=== PATIENT | male | born 1950 | race Caucasian/White ===

== ENCOUNTER 2017-09-19 16:18 | Emergency (ER) | payer OTHER ==
[2017-09-19] MEDS ORDERED: ONDANSETRON 4 MG/2 ML VIAL ONE ×2 (17:40→19:19)
[2017-09-19] MEDS ORDERED: MECLIZINE HCL 12.5 MG TAB ONE (17:40)
[2017-09-19] MEDS ORDERED: FAMOTIDINE 20 MG/2 ML VIAL IV ONE (17:40)
[2017-09-19] MEDS ORDERED: NA CHLORIDE 0.9% 500 ML ONE ×2 (17:50→19:27)
[2017-09-19 17:53] LABS: Absolute Lymphocytes (CBC) 1.5 K/uL (0.7-4.9); Absolute Monocytes 0.6 K/uL (0.1-1.3); Absolute Neutrophil 8.6 K/uL (1.8-8.0); Basophils % 0.7 % (0-1.3); Eosinophils % 0.5 % (0-4.4); Hematocrit 46.8 % (39.6-49.0); Lymphocytes % 14.1 % (15.3-44.8); MCH 30.2 pg (27.0-35.0); MCV 90.7 fL (80-100); MPV 8.8 fL (7.6-11.3); Monocytes % 5.5 % (3.3-12.3); RBC Red Blood Cell Count 5.16 M/uL (4.33-5.43)
--- NOTE | 2017-09-19 17:59 | RAD REPORT ---
EXAM DESCRIPTION: CT - Head Brain Wo Cont - 09/19/2017 5:52 pm CLINICAL HISTORY: Headache, dizziness, vertigo COMPARISON: None. TECHNIQUE: Axial 5 mm thick images of the head were obtained without IV contrast. All CT scans are performed using dose optimization technique as appropriate and may include automated exposure control or mA/KV adjustment according to patient size. FINDINGS: No intracranial hemorrhage, mass, edema or shift of mid-line structures. No acute infarcti on changes seen. No abnormal extra-axial fluid collections. Ventricles are normal. Mastoid air cells and visualized portions of the paranasal sinuses are clear. No acute bony findings. IMPRESSION: Negative non-contrast CT head examination.
[2017-09-19 18:06] LABS: Protime INR 1.03
[2017-09-19 18:20] LABS: Albumin 3.8 g/dL (3.4-5.0); Bilirubin Direct 0.1 mg/dL (0-0.2); Bilirubin Total 0.7 mg/dL (0.2-1.0); CKMB Creatine Kinase MB 1.4 ng/mL (0.3-3.6); Magnesium 2.4 mg/dL (1.8-2.4); Potassium 4.5 mmol/L (3.5-5.1); Protein, Total 7.4 g/dL (6.4-8.2)
--- NOTE | 2017-09-19 18:47 | EKG ---
Test Date: 2017-09-19 Test Time: 17:02:01 Alteration Hand: DAVID MEASUREMENT RESULTS: Intervals: Rate: 58 OK: 176 QRSD: 82 QT: 450 QTc: 441 [place]: P: 2 OK: 176 QRS: 5 T: 26 INTERPRETIVE STATEMENTS: Sinus bradycardia Otherwise normal ECG Compared to ECG 01/22/2010 14:48:52 No significant changes Electronically Signed On 09-19-17 18:47:03 CDT by Gurpreet Brower
--- NOTE | 2017-09-19 18:53 | RAD REPORT ---
EXAM DESCRIPTION: RAD - Chest Single View - 09/19/2017 5:59 pm CLINICAL HISTORY: Dizziness, weakness, shortness of breath COMPARISON: January 2020 TECHNIQUE: AP portable chest image was obtained 1746 hours . FINDINGS: Lung volumes are low. Linear stranding left base similar to comparison. This is scarring o r chronic atelectasis. Acute infiltrate is not suspected. No failure or volume overload. Heart and va sculature are normal. No measurable pleural effusion and no pneumothorax. No gross bony abnormality s een. No acute aortic findings suspected. IMPRESSION: Shallow inspiration film without acute cardiopulmonary finding. No significant change from comparison.
[2017-09-19] MEDS ORDERED: NA CHLORIDE 0.9% 1,000 ML ONE (19:27)
[2017-09-19] MEDS ORDERED: PROMETHAZINE 25 MG/ML VIAL ONE (20:17)
--- NOTE | 2017-09-19 20:32 | EDPHYS ---
Physician Documentation [facility] Name: Donald Dixon Age: 67 yrs Sex: Male : 1950 Arrival Date: 09/19/2017 Time: 16:22 Bed 30 Private MD: Adam Braswell ED Physician Antione Alves HPI: 09/19 17:15 This 67 yrs old Male presents to ER via Ambulatory with complaints of Vertigo.cp 17:15 The patient presents with dizziness, lightheadedness, feeling off balance. cp 17:15 Onset: The symptoms/episode began/occurred this morning. Context: occurred at home, cp occurred while the patient was getting up from bed, just prior to the episode the patient experienced no apparent symptoms. Associated signs and symptoms: Pertinent positives: headache, nausea, vomiting. Severity of symptoms: in the emergency department the symptoms are unchanged. Patient's baseline: Neuro: alert and fully oriented, Motor: no deficits, Ambulation: walks without assistance, Speech: normal. Historical: - Allergies: 16:54 No Known Allergies; jl7 - PMHx: 16:54 Hypertension; GERD; jl7 - PSHx: 16:54 Appendectomy; Knee surgery; Tonsillectomy; jl7 - Immunization history:: Adult Immunizations up to date. - Social history:: Smoking status: Patient/guardian denies using tobacco, Patient uses alcohol, but reports only rare drinking. - Ebola Screening: : No symptoms or risks identified at this time. ROS: 17:20 Constitutional: Negative for body aches, chills, fever. cp 17:20 Eyes: Negative for injury, pain, redness, and discharge. cp 17:20 ENT: Negative for drainage from ear(s), ear pain, sore throat, difficulty swallowing, difficulty handling secretions. 17:20 Cardiovascular: Negative for chest pain, edema, palpitations. 17:20 Respiratory: Negative for cough, shortness of breath, wheezing. 17:20 Abdomen/GI: Positive for nausea and vomiting, Negative for abdominal pain, diarrhea, constipation, black/tarry stool, rectal bleeding. 17:20 Skin: Negative for cellulitis, rash. 17:20 Neuro: Positive for dizziness, headache, Negative for altered mental status, loss of consciousness, speech changes, syncope, near syncope, weakness. 17:20 All other systems are negative. Exam: 17:13 ECG was reviewed by the Attending Physician. cp 17:25 Constitutional: The patient appears in no acute distress, alert, awake, cp non-diaphoretic, non-toxic, well developed, well nourished, uncomfortable. 17:25 Head/Face: Normocephalic, atraumatic. Eyes: Pupils equal round and reactive to light, cp extra-ocular motions intact. Lids and lashes normal. Conjunctiva and sclera are non-icteric and not injected. Cornea within normal limits. Periorbital areas with no swelling, redness, or edema. ENT: Nares patent. No nasal discharge, no septal abnormalities noted. Tympanic membranes are normal and external auditory canals are clear. Oropharynx with no redness, swelling, or masses, exudates, or evidence of obstruction, uvula midline. Mucous membranes moist. Neck: Trachea midline, no thyromegaly or masses palpated, and no cervical lymphadenopathy. Supple, full range of motion without nuchal rigidity, or vertebral point tenderness. No Meningismus. Chest/axilla: Normal chest wall appearance and motion. Nontender with no deformity. No lesions are appreciated. 17:25 Cardiovascular: Rate: bradycardic, Rhythm: regular, Heart sounds: murmur, rub, not appreciated, gallop, not appreciated, Edema: is not appreciated, JVD: is not appreciated. 17:25 Respiratory: the patient does not display signs of respiratory distress, Respirations: normal, no use of accessory muscles, no retractions, no splinting, no tachypnea, labored breathing, is not present, Breath sounds: are clear throughout, no decreased breath sounds, no stridor, no wheezing. 17:25 Abdomen/GI: Inspection: abdomen appears normal, Bowel sounds: active, all quadrants, Palpation: abdomen is soft and non-tender, in all quadrants, rebound tenderness, is not appreciated, voluntary guarding, is not appreciated, involuntary guarding, is not appreciated. 17:25 Skin: cellulitis, is not appreciated, no rash present. 17:25 Neuro: Orientation: to person, place \T\ time. Mentation: lucid, able to follow commands, Cranial nerves: grossly normal, Cerebellar function: Romberg testing is negative, normal finger to nose testing, Motor: moves all fours, strength is normal, Sensation: is normal. Vital Signs: 16:54 BP 130 / 79; Pulse 58; Resp 14 S; Temp 97.7(O); Pulse Ox 94% on R/A; Weight 108.86 kg jl7 (R); Height 5 ft. 10 in. (177.80 cm) (R); Pain 0/10; 18:33 BP 134 / 80 Standing; Pulse 61; rv 18:33 BP 131 / 82 Sitting; Pulse 56; rv 18:33 BP 129 / 69 Supine; Pulse 61; rv 20:05 BP 149 / 98; Pulse 66; Resp 13; Pulse Ox 100% ; rv 20:47 BP 132 / 72; Pulse 63; Resp 14; Pulse Ox 96% on R/A; rv 16:54 Body Mass Index 34.44 (108.86 kg, 177.80 cm) jl7 MDM: 17:08 Patient medically screened. 19:25 Data reviewed: vital signs, nurses notes, lab test result(s), EKG, radiologic studies, cp CT scan, plain films. 19:25 Test interpretation: by ED physician or midlevel provider: ECG, plain radiologic cp studies. 19:30 Physician consultation: Mandy Helton MD was called at 19:25, regarding admission, to the telemetry unit. patient's condition, request transfer if MRI is unavailable during weekend. 20:11 ED course: Discussed results of labs, EKG and radiology studies with head CT negative for acute findings. Informed patient of unavailability of MRI and neurology services this week and need to transfer. Patient declines at this time. Requesting nausea medications and will continue to monitor symptoms at home. 09/19 17:12 Order name: Basic Metabolic Panel; Complete Time: 18:40 cp 09/19 17:12 Order name: CBC with Diff; Complete Time: 18:13 cp 09/19 18:40 Interpretation: Normal except: ROBIN% 79.2; LYM% 14.1; NEUT A 8.6. cp 09/19 17:12 Order name: Ckmb; Complete Time: 18:40 cp 09/19 17:12 Order name: CPK; Complete Time: 18:40 cp 09/19 17:12 Order name: LFT's; Complete Time: 18:40 cp 09/19 17:12 Order name: Magnesium; Complete Time: 18:40 cp 09/19 17:12 Order name: NT PRO-BNP; Complete Time: 18:40 cp 09/19 17:12 Order name: PT-INR; Complete Time: 18:13 cp 09/19 17:12 Order name: Ptt, Activated; Complete Time: 18:13 cp 09/19 17:12 Order name: Troponin (emerg Dept Use Only); Complete Time: 18:40 cp /20 17:12 Order name: XRAY Chest (1 view); Complete Time: 19:03 cp 09/19 19:04 Interpretation: Report review. cp 09/19 17:20 Order name: CT Head Brain wo Cont; Complete Time: 18:13 cp 20 18:41 Interpretation: Report reviewed. cp 09/19 17:12 Order name: EKG; Complete Time: 17:13 cp 09/19 17:12 Order name: Cardiac monitoring; Complete Time: 17:44 cp 09/19 17:12 Order name: EKG - Nurse/Tech; Complete Time: 17:44 cp 09/19 17:12 Order name: IV Saline Lock; Complete Time: 17:44 cp 09/19 17:12 Order name: Labs collected and sent; Complete Time: 17:44 cp 09/19 17:12 Order name: O2 Per Protocol; Complete Time: 17:44 cp 09/19 17:12 Order name: O2 Sat Monitoring; Complete Time: 17:44 cp 09/19 17:13 Order name: Orthostatics; Complete Time: 18:32 cp 20 19:29 Order name: PO challenge; Complete Time: 20:03 cp 09/19 19:30 Order name: Misc. Order: ambulate patient; Complete Time: 20:03 cp EC:13 Rate is 58 beats/min. Rhythm is regular. [place] interval is normal. QRS interval is normal. cp QT interval is normal. No ST changes noted. Interpreted by me. Reviewed by me. Administered Medications: 17:43 Drug: Meclizine 25 mg Route: PO; rv 19:21 Follow up: Response: No adverse reaction rv 17:43 Drug: Zofran 4 mg Route: IVP; Site: left antecubital; rv 19:21 Follow up: Response: No adverse reaction rv 17:43 Drug: Pepcid 20 mg Route: IVP; Site: left antecubital; rv 19:21 Follow up: Response: No adverse reaction rv 18:00 Drug: NS 0.9% 500 ml Route: IV; Rate: bolus; Site: left antecubital; rv 19:20 Follow up: Response: No adverse reaction; IV Status: Completed infusion rv 19:20 Drug: Zofran 4 mg Route: IVP; Site: left antecubital; rv 20:18 Follow up: Response: No adverse reaction rv 19:22 Drug: NS 0.9% 500 ml Route: IV; Rate: bolus; Site: left antecubital; rv 20:17 Follow up: Response: No adverse reaction; IV Status: Completed infusion rv 19:22 Drug: NS 0.9% 1000 ml Route: IV; Rate: 100 ml/hr; Site: left antecubital; rv 20:18 Follow up: Response: No adverse reaction; IV Status: Completed infusion rv 20:17 Drug: Phenergan 25 mg Route: IVP; Site: left antecubital; rv 20:48 Follow up: Response: Medication administered at discharge. rv Disposition: 09/20 07:15 Co-signature as Attending Physician, Antione Alves MD. rn Disposition: 09/19/17 20:31 Discharged to Home. Impression: Dizziness, Nausea and vomiting. - Condition is Stable. - Discharge Instructions: Dizziness, Nausea and Vomiting, Adult. - Prescriptions for Meclizine 25 mg Oral Tablet - take 1 tablet by ORAL route every 8 hours As needed; 30 tablet. promethazine 25 mg Oral Tablet - take 1 tablet by ORAL route every 6 hours As needed; 20 tablet. - Medication Reconciliation Form, Thank You Letter, Antibiotic Education, Prescription Opioid Use form. - Follow up: Hernandez Frost MD; When: 09/22/2017; Reason: Recheck today's complaints. - Problem is new. - Symptoms have improved. Signatures: Dispatcher [employer] EDAntione Fragoso MD MD rn Page, Corey, PA PA cp Leal, Jahala, RN RN jl7 Thanh Landry RN RN rv Corrections: (The following items were deleted from the chart) 09/19 20:48 20:31 09/19/2017 20:31 Discharged to Home. Impression: Dizziness; Nausea and vomiting. rv Condition is Stable. Forms are Medication Reconciliation Form, Thank You Letter, Antibiotic Education, Prescription Opioid Use. Follow up: Hernandez Frost; When: 09/22/2017; Reason: Recheck today's complaints. Problem is new. Symptoms have improved. cp
--- NOTE | 2017-09-19 20:32 | ER ---
Nurse's Notes [facility] Name: Donald Dixon Age: 67 yrs Sex: Male : 1950 Arrival Date: 09/19/2017 Time: 16:22 Bed 30 Private MD: Adam Braswell Diagnosis: Dizziness;Nausea and vomiting Presentation: 09/19 16:51 Presenting complaint: states: Rolled over in bed at about 0900 and had extreme jl7 vertigo, started sweating and feeling nauseous this morning. Has been very nauseous and dizzy all day. Transition of care: patient was not received from another setting of care. Onset of symptoms was September 19, 2017 at 09:00. Risk Assessment: Do you want to hurt yourself or someone else? Patient reports no desire to harm self or others. Initial Sepsis Screen: Does the patient meet any 2 criteria? No. Patient's initial sepsis screen is negative. Does the patient have a suspected source of infection? No. Patient's initial sepsis screen is negative. Care prior to arrival: None. 16:51 Method Of Arrival: Ambulatory [facility] 16:51 Acuity: SHEYLA 3 jl7 Triage Assessment: 16:54 General: Appears uncomfortable, Behavior is cooperative, quiet. Pain: Denies pain. jl7 Neuro: Level of Consciousness is awake, alert, obeys commands, Oriented to person, place, time, situation, Facial symmetry appears normal, Reports dizziness, Denies blurred vision. GI: Reports nausea. Historical: - Allergies: 16:54 No Known Allergies; jl7 - PMHx: 16:54 Hypertension; GERD; jl7 - PSHx: 16:54 Appendectomy; Knee surgery; Tonsillectomy; jl7 - Immunization history:: Adult Immunizations up to date. - Social history:: Smoking status: Patient/guardian denies using tobacco, Patient uses alcohol, but reports only rare drinking. - Ebola Screening: : No symptoms or risks identified at this time. Screenin:57 Abuse screen: Denies threats or abuse. Denies injuries from another. Nutritional rv screening: No deficits noted. Tuberculosis screening: No symptoms or risk factors identified. Fall Risk None identified. Assessment: 17:00 General: Appears in no apparent distress. comfortable, Behavior is calm, cooperative. rv Pain: Denies pain. Neuro: Level of Consciousness is awake, alert, obeys commands, Oriented to person, place, time, situation. Cardiovascular: Heart tones S1 S2 present. Respiratory: Airway is patent. GI: Abdomen is round non-distended. : No signs and/or symptoms were reported regarding the genitourinary system. EENT: No signs and/or symptoms were reported regarding the EENT system. Derm: Skin is intact. 20:05 Reassessment: Patient appears in no apparent distress at this time. Patient and/or rv family updated on plan of care and expected duration. Pain level reassessed. Patient is alert, oriented x 3, equal unlabored respirations, skin warm/dry/pink. PATIENT TOLERATED AMBULATION AND PO CHALLENGE. Vital Signs: 16:54 BP 130 / 79; Pulse 58; Resp 14 S; Temp 97.7(O); Pulse Ox 94% on R/A; Weight 108.86 kg jl7 (R); Height 5 ft. 10 in. (177.80 cm) (R); Pain 0/10; 18:33 BP 134 / 80 Standing; Pulse 61; rv 18:33 BP 131 / 82 Sitting; Pulse 56; rv 18:33 BP 129 / 69 Supine; Pulse 61; rv 20:05 BP 149 / 98; Pulse 66; Resp 13; Pulse Ox 100% ; rv 20:47 BP 132 / 72; Pulse 63; Resp 14; Pulse Ox 96% on R/A; rv 16:54 Body Mass Index 34.44 (108.86 kg, 177.80 cm) jl7 ED Course: 16:22 Patient arrived in ED. mr 16:22 Adam Braswell MD is Private Physician. mr 16:53 Triage completed. jl7 16:54 Arm band placed on right wrist. jl7 17:08 Yohannes Suarez PA is PHCP. cp 17:08 Antione Alves MD is Attending Physician. cp 17:29 EKG done, by satellite dish technician. reviewed by Yohannes CHENG. sm3 17:43 Radiology exam delayed due to Pt wants to get meds before going to CT. vr 17:51 CT completed. Patient tolerated procedure well. Patient moved back from CT. nj 17:52 CT Head Brain wo Cont In Process Unspecified. EDMS 17:57 Patient has correct armband on for positive identification. Placed in gown. Bed in low rv position. Call light in reach. Side rails up X 1. Adult w/ patient. peanut blancher on. Pulse ox on. NIBP on. 17:58 X-ray completed. Patient tolerated procedure well. bb2 17:58 Patient moved back from radiology. bb2 17:59 XRAY Chest (1 view) In Process Unspecified. EDTX 20:30 Hernandez Frost MD is Referral Physician. cp Administered Medications: 17:43 Drug: Meclizine 25 mg Route: PO; rv 19:21 Follow up: Response: No adverse reaction rv 17:43 Drug: Zofran 4 mg Route: IVP; Site: left antecubital; rv 19:21 Follow up: Response: No adverse reaction rv 17:43 Drug: Pepcid 20 mg Route: IVP; Site: left antecubital; rv 19:21 Follow up: Response: No adverse reaction rv 18:00 Drug: NS 0.9% 500 ml Route: IV; Rate: bolus; Site: left antecubital; rv 19:20 Follow up: Response: No adverse reaction; IV Status: Completed infusion rv 19:20 Drug: Zofran 4 mg Route: IVP; Site: left antecubital; rv 20:18 Follow up: Response: No adverse reaction rv 19:22 Drug: NS 0.9% 500 ml Route: IV; Rate: bolus; Site: left antecubital; rv 20:17 Follow up: Response: No adverse reaction; IV Status: Completed infusion rv 19:22 Drug: NS 0.9% 1000 ml Route: IV; Rate: 100 ml/hr; Site: left antecubital; rv 20:18 Follow up: Response: No adverse reaction; IV Status: Completed infusion rv 20:17 Drug: Phenergan 25 mg Route: IVP; Site: left antecubital; rv 20:48 Follow up: Response: Medication administered at discharge. rv Outcome: 20:31 Discharge ordered by MD. cp 20:48 Patient left the ED. rv Signatures: Dispatcher [employer] EDTX Breonna Silva Victoria vr Page, Corey, PA PA cp Jordan, Nathan nj Leal, Jahala, TREMAYNE RN jl7 Nora Rand bb2 Marjan Brown 3 Thanh Landry, RN RN rv Corrections: (The following items were deleted from the chart) 17:44 17:[address] nj vr
== END 2017-09-19 20:48 | disposition home or self-care (01) ==
LOC: ER 16:18
DX: R11.2 Nausea with vomiting, unspecified (principal); I10 Essential (primary) hypertension
CPT/HCPCS: 36415; 70450; 71045; 80048; 80076; 82550; 82553; 83735; 83880; 84484; 85025; 85610; 85730; 93005; 96361; 96374; 96375; 99285; J2405 ×2; J2550; J7030

== ENCOUNTER 2020-04-04 03:57 | Emergency (ER) | payer OTHER ==
[2020-04-04 05:30] LABS: SARS-COV-2 RT PCR POSITIVE (NEGATIVE)
--- NOTE | 2020-04-04 05:38 | ER ---
Nurse's Notes [facility] Name: Donald Dixon Age: 70 yrs Sex: Male : 1950 Arrival Date: 04/04/2020 Time: 04:01 Bed 14 Private MD: Adam Braswell Diagnosis: Coronavirus infection, unspecified Presentation: 04/04 04:09 Chief complaint: Patient states: "i'd like to be tested for covid. i started having a ll2 cough and sore throat yesterday morning that hasn't gone away.". Coronavirus screen: cough unrelated to allergies, sore throat. Ebola Screen: No symptoms or risks identified at this time. Initial Sepsis Screen: Does the patient meet any 2 criteria? No. Patient's initial sepsis screen is negative. Does the patient have a suspected source of infection? No. Patient's initial sepsis screen is negative. Risk Assessment: Do you want to hurt yourself or someone else? Patient reports no desire to harm self or others. Onset of symptoms was April 03, 2020. 04:09 Method Of Arrival: Ambulatory ll2 04:09 Acuity: SHEYLA 4 ll2 Triage Assessment: 04:12 General: Appears in no apparent distress. Behavior is calm, cooperative, appropriate ll2 for age. Pain: Denies pain. EENT:. Neuro: Level of Consciousness is awake, alert, obeys commands, Oriented to person, place, time, situation. Cardiovascular: Patient's skin is warm and dry. Respiratory: Airway is patent Respiratory effort is even, unlabored, Respiratory pattern is regular, symmetrical. GI: No signs and/or symptoms were reported involving the gastrointestinal system. : No signs and/or symptoms were reported regarding the genitourinary system. Derm: Skin is intact, is healthy with good turgor, Skin is dry, Skin is pink, warm \\T\\ dry. Musculoskeletal: Circulation, motion, and sensation intact. Range of motion: intact in all extremities. Historical: - Allergies: 04:12 No Known Allergies; ll2 - Home Meds: 04:12 omeprazole 20 mg Oral cpDR 1 cap once daily [Active]; Lipitor 10 mg Oral tab 1 tab once ll2 daily [Active]; ramipril 1.25 mg Oral cap 1 cap once daily [Active]; metoprolol tartrate 25 mg Oral tab 1 tab once daily [Active]; - PMHx: 04:12 GERD; Hypertension; ll2 - PSHx: 04:12 Appendectomy; Knee surgery; Tonsillectomy; ll2 - Immunization history:: Adult Immunizations up to date. - Social history:: Smoking status: Patient denies any tobacco usage or history of. - Family history:: not pertinent. - Hospitalizations: : No recent hospitalization is reported. Screenin:14 Abuse screen: Denies threats or abuse. Nutritional screening: No deficits noted. ll2 Tuberculosis screening: No symptoms or risk factors identified. Fall Risk None identified. Assessment: 04:13 Reassessment: see triage assessment. ll2 Vital Signs: 04:09 BP 132 / 102; Pulse 78; Resp 18; Temp 98.5; Pulse Ox 97% on R/A; ll2 ED Course: 04:01 Patient arrived in ED. am2 04:01 Adam Braswell MD is Private Physician. am2 04:02 Antione Alves MD is Attending Physician. rn 04:09 Valencia Owusu RN is Primary Nurse. ll2 04:11 Triage completed. ll2 04:14 Patient has correct armband on for positive identification. Bed in low position. Call ll2 light in reach. Side rails up X 1. Pulse ox on. NIBP on. 04:14 No provider procedures requiring assistance completed. ll2 05:38 Jam Ro MD is Referral Physician. rn Administered Medications: No medications were administered Outcome: 05:38 Discharge ordered by MD. rn 05:51 Discharged to home ambulatory. em 05:51 Condition: stable 05:51 Discharge instructions given to patient, Instructed on discharge instructions, follow up and referral plans. medication usage, Demonstrated understanding of instructions, follow-up care, medications, Prescriptions given X 2. 05:52 Patient left the ED. em Signatures: Nikko Mendoza RN RN em Antione Alves MD MD rn Moreno, Amanda 2 Valencia Owusu, TREMAYNE RN 2
--- NOTE | 2020-04-04 05:39 | EDPHYS ---
Physician Documentation [facility] Name: Donald Dixon Age: 70 yrs Sex: Male : 1950 Arrival Date: 04/04/2020 Time: 04:01 Bed 14 Private MD: Adam Braswell ED Physician Antione Alves HPI: 04/04 04:15 This 70 yrs old Male presents to ER via Ambulatory with complaints of Sore rn Throat, Cough. 04:15 The patient presents with sore throat. The patient describes throat pain as dry, raw. rn Onset: The symptoms/episode began/occurred yesterday. Severity of symptoms: At their worst the symptoms were mild, in the emergency department the symptoms are unchanged. Modifying factors: The symptoms are alleviated by nothing, the symptoms are aggravated by nothing. Associated signs and symptoms: Pertinent positives: chills, cough, fever, Pertinent negatives dysphagia, shortness of breath. The patient has not experienced similar symptoms in the past. The patient has not recently seen a physician. Reports onset of fever/chills/non-productive cough/and sore throat since yesterday. Requests COVID test. Denies sob. NO hemoptysis. No abd pain/vomiting/diarrhea. . Historical: - Allergies: 04:12 No Known Allergies; ll2 - Home Meds: 04:12 omeprazole 20 mg Oral cpDR 1 cap once daily [Active]; Lipitor 10 mg Oral tab 1 tab once ll2 daily [Active]; ramipril 1.25 mg Oral cap 1 cap once daily [Active]; metoprolol tartrate 25 mg Oral tab 1 tab once daily [Active]; - PMHx: 04:12 GERD; Hypertension; ll2 - PSHx: 04:12 Appendectomy; Knee surgery; Tonsillectomy; ll2 - Immunization history:: Adult Immunizations up to date. - Social history:: Smoking status: Patient denies any tobacco usage or history of. - Family history:: not pertinent. - Hospitalizations: : No recent hospitalization is reported. ROS: 04:15 Constitutional: + fever and chills Eyes: Negative for injury, pain, redness, and route returner, ENT: + sore throat Neck: Negative for injury, pain, and swelling, Cardiovascular: Negative for chest pain, palpitations, and edema, Respiratory: + cough, negative for sob Abdomen/GI: Negative for abdominal pain, nausea, vomiting, diarrhea, and constipation, MS/Extremity: Negative for injury and deformity, Skin: Negative for injury, rash, and discoloration, Neuro: Negative for headache, weakness, numbness, tingling, and seizure. Exam: 04:15 Constitutional: This is a well developed, well nourished patient who is awake, alert, rn and in no acute distress. Head/Face: Normocephalic, atraumatic. ENT: No stridor Neck: Trachea midline, no masses palpated, and no cervical lymphadenopathy. Cardiovascular: Regular rate and rhythm. No pulse deficits. Respiratory: No increased work of breathing, no retractions or nasal flaring. Skin: Warm, dry MS/ Extremity: Pulses equal, no cyanosis. Neuro: Awake and alert, GCS 15 Vital Signs: 04:09 BP 132 / 102; Pulse 78; Resp 18; Temp 98.5; Pulse Ox 97% on R/A; ll2 MDM: 04:02 Patient medically screened. rn 05:37 Differential diagnosis: viral syndrome COVID, Flu. Data reviewed: vital signs, nurses rn notes, lab test result(s), and as a result, I will discharge patient. Counseling: I had a detailed discussion with the patient and/or guardian regarding: the historical points, exam findings, and any diagnostic results supporting the discharge/admit diagnosis, lab results, the need for outpatient follow up, to return to the emergency department if symptoms worsen or persist or if there are any questions or concerns that arise at home. Response to treatment: There is no appreciated change of the patient's symptoms at this time, and as a result, I will discharge patient. Special discussion: I discussed with the patient/guardian in detail that at this point there is no indication for admission to the hospital. It is understood, however, that if the symptoms persist or worsen the patient needs to return immediately for re-evaluation. ED course: No oxygen requirement, denies sob, COVID +, will dc home with steroids and return precautions. 04/04 05:30 Order name: COVID-19/FLU A+B; Complete Time: 05:37 EDMS Administered Medications: No medications were administered Disposition: 04/04/20 05:38 Discharged to Home. Impression: Coronavirus infection, unspecified. - Condition is Stable. - Discharge Instructions: Viral Respiratory Infection, Quqr-Ne-Cync, COVID-19. - Prescriptions for Prednisone 20 mg Oral Tablet - take 1 tablet by ORAL route as directed for 14 days Take 1 tablet twice a day by mouth for 7 days, followed by 1 tablet once a day by mouth for 7 days.; 21 tablet. Albuterol Sulfate 90 mcg/actuation - inhale 1-2 puff by INHALATION route every 4-6 hours; 1 Inhaler. - Medication Reconciliation Form, Thank You Letter, Antibiotic Education, Prescription Opioid Use form. - Follow up: Jam oR MD; When: As needed; Reason: Recheck today's complaints, Re-evaluation by your physician. - Problem is new. - Symptoms are unchanged. Signatures: Dispatcher [employer] [facility] Nikko Mendoza, RN RN em Antione Alves MD MD rn Linscombe, Lacie, RN RN ll2 Corrections: (The following items were deleted from the chart) 04:41 04:12 Influenza Screen (A \T\ B)+BA.LAB.BRZ ordered. [facility] EDID 04:41 04:12 Influenza Screen (A ordered. [facility] EDID 05:52 05:38 04/04/2020 05:38 Discharged to Home. Impression: Coronavirus infection, em unspecified. Condition is Stable. Forms are Medication Reconciliation Form, Thank You Letter, Antibiotic Education, Prescription Opioid Use. Follow up: Jam Ro; When: As needed; Reason: Recheck today's complaints, Re-evaluation by your physician. Problem is new. Symptoms are unchanged. rn
== END 2020-04-04 05:52 | disposition home or self-care (01) ==
LOC: ER 03:57
DX: U07.1 COVID-19 (principal); K21.9 Gastro-esophageal reflux disease without esophagitis; I10 Essential (primary) hypertension
CPT/HCPCS: 0240U; 99283

== ENCOUNTER 2020-04-12 15:07 | Emergency (ER) | payer OTHER ==
[2020-04-12 16:47] LABS: Absolute Lymphocytes (CBC) 0.7 K/uL (0.7-4.9); Basophils % 0.4 % (0-1.3); Hematocrit 45.7 % (39.6-49.0); Lymphocytes % 17.2 % (15.3-44.8); MPV 8.1 fL (7.6-11.3); RBC Red Blood Cell Count 5.18 M/uL (4.33-5.43)
--- NOTE | 2020-04-12 16:55 | RAD REPORT ---
EXAM DESCRIPTION: Clement Single View04/12/2020 4:32 pm CLINICAL HISTORY: Cough COMPARISON: 2018 FINDINGS: Mild to moderate bilateral pulmonary opacities. The heart is normal size IMPRESSION: Mild to moderate bilateral pulmonary opacities probably pneumonia
[2020-04-12 16:59] LABS: Protime INR 1.09
[2020-04-12 17:08] LABS: ALT/SGPT 40 U/L (12-78); AST/SGOT 22 U/L (15-37); Albumin 3.2 g/dL (3.4-5.0); Alkaline Phosphatase 80 U/L (45-117); BUN Blood Urea Nitrogen 15 mg/dL (7-18); Bicarbonate 25 mmol/L (21-32); Bilirubin Direct 0.2 mg/dL (0-0.2); Bilirubin Total 0.6 mg/dL (0.2-1.0); Glucose Level 113 mg/dL (74-106); Lipase 88 U/L (73-393); Potassium 4.3 mmol/L (3.5-5.1); Sodium Level 138 mmol/L (136-145); Troponin (Emerg Dept Use Only) < 0.02 ng/mL (0.0-0.045)
[2020-04-12] MEDS ORDERED: dexAMETHasone 10 MG/ML VIAL ONE (17:24)
--- NOTE | 2020-04-12 18:46 | EDPHYS ---
Physician Documentation [facility] Name: Donald Dixon Age: 70 yrs Sex: Male : 1950 Arrival Date: 04/12/2020 Time: 15:09 Bed 6 Private MD: ED Physician Antonio Davis HPI: 04/12 18:43 This 70 yrs old Male presents to ER via Ambulatory with complaints of COVID+, kb Breathing Difficulty. 18:43 The patient or guardian reports cough, that is intermittent, described as moderate, kb with no sputum, difficulty breathing, flu symptoms, low-grade fever. Onset: The symptoms/episode began/occurred 8 day(s) ago, and became worse today. Severity of symptoms: At their worst the symptoms were moderate, in the emergency department the symptoms are unchanged. Modifying factors: The symptoms are alleviated by nothing, the symptoms are aggravated by nothing. Associated signs and symptoms: Pertinent positives: fever, Pertinent negatives: chest pain, diarrhea, ear ache, nausea, rhinorrhea, sore throat, vomiting. The patient has not experienced similar symptoms in the past. The patient has been recently seen at the [facility] Emergency Department, last week, for similar complaints. Pt reports he was diagnosed with covid 8 days ago. Today the shortness of breath has been worse. Historical: - Allergies: 15:28 No Known Allergies; sv - PMHx: 15:28 GERD; Hypertension; sv - PSHx: 15:28 Appendectomy; Knee surgery; Tonsillectomy; sv ROS: 18:41 Cardiovascular: Negative for chest pain, palpitations, and edema, Abdomen/GI: Negative kb for abdominal pain, nausea, vomiting, diarrhea, and constipation, Back: Negative for injury and pain, MS/Extremity: Negative for injury and deformity, Skin: Negative for injury, rash, and discoloration, Neuro: Negative for headache, weakness, numbness, tingling, and seizure. 18:41 Constitutional: Positive for fever. 18:41 Respiratory: Positive for cough, shortness of breath. Exam: 17:24 ECG was reviewed by the Attending Physician. kb 18:41 Constitutional: This is a well developed, well nourished patient who is awake, alert, kb and in no acute distress. Head/Face: Normocephalic, atraumatic. Chest/axilla: Normal chest wall appearance and motion. Nontender with no deformity. No lesions are appreciated. Cardiovascular: Regular rate and rhythm with a normal S1 and S2. No gallops, murmurs, or rubs. Normal PMI, no JVD. No pulse deficits. Respiratory: Lungs have equal breath sounds bilaterally, clear to auscultation and percussion. No rales, rhonchi or wheezes noted. No increased work of breathing, no retractions or nasal flaring. Abdomen/GI: Soft, non-tender, with normal bowel sounds. No distension or tympany. No guarding or rebound. No evidence of tenderness throughout. Skin: Warm, dry with normal turgor. Normal color with no rashes, no lesions, and no evidence of cellulitis. MS/ Extremity: Pulses equal, no cyanosis. Neurovascular intact. Full, normal range of motion. Neuro: Awake and alert, GCS 15, oriented to person, place, time, and situation. Cranial nerves II-XII grossly intact. Motor strength 5/5 in all extremities. Sensory grossly intact. Cerebellar exam normal. Normal gait. Vital Signs: 15:28 BP 128 / 84; Pulse 89; Resp 30; Temp 98.8(TE); Pulse Ox 98% on R/A; Weight 108.86 kg; sv Height 5 ft. 10 in. (177.80 cm); Pain 0/10; 17:26 BP 108 / 68; Pulse 65; Resp 20 S; Pulse Ox 95% on R/A; jd3 18:30 BP 110 / 70; Pulse 68; Resp 22 S; Pulse Ox 96% on R/A; aa5 15:28 Body Mass Index 34.44 (108.86 kg, 177.80 cm) sv MDM: 16:02 Patient medically screened. kb 18:41 Data reviewed: vital signs, nurses notes. Data interpreted: Pulse oximetry: on room air kb is 95 %. Interpretation: normal. Counseling: I had a detailed discussion with the patient and/or guardian regarding: the historical points, exam findings, and any diagnostic results supporting the discharge/admit diagnosis, lab results, radiology results, the need for outpatient follow up, a family practitioner, to return to the emergency department if symptoms worsen or persist or if there are any questions or concerns that arise at home. 04/12 16:03 Order name: Blood Culture Adult (2) kb 02/10 16:03 Order name: BMP kb 04/12 16:03 Order name: C-Reactive Protein kb 04/12 16:03 Order name: CBC with Diff kb 04/12 16:03 Order name: D-Dimer kb 04/12 16:03 Order name: Ferritin kb 04/12 16:03 Order name: Lactate kb 04/12 16:03 Order name: LFT's kb 04/12 16:03 Order name: Lipase kb 04/12 16:03 Order name: Procalcitonin kb 04/12 16:03 Order name: PT-INR; Complete Time: 17:20 kb 04/12 16:03 Order name: Ptt, Activated; Complete Time: 17:20 kb 04/12 16:03 Order name: Troponin (emerg Dept Use Only); Complete Time: 17:20 kb 04/12 16:04 Order name: Blood Culture EDMS 04/12 16:03 Order name: CXR XRAY; Complete Time: 16:57 kb 04/12 16:03 Order name: EKG; Complete Time: 16:04 kb 04/12 16:03 Order name: Cardiac monitoring; Complete Time: 16:48 kb 04/12 16:03 Order name: Droplet/Contact Precautions; Complete Time: 16:48 kb 04/12 16:03 Order name: EKG - Nurse/Tech; Complete Time: 16:59 kb 04/12 16:03 Order name: IV Start; Complete Time: 16:48 kb 04/12 16:04 Order name: Basic Metabolic Panel; Complete Time: 17:20 EDMS 04/12 16:04 Order name: C-Reactive Protein; Complete Time: 17:20 EDMS 04/12 16:04 Order name: CBC with Automated Diff; Complete Time: 16:51 EDMS 04/12 16:04 Order name: D-Dimer; Complete Time: 17:20 EDMS 04/12 16:04 Order name: Ferritin; Complete Time: 17:20 EDMS 04/12 16:04 Order name: Lactate; Complete Time: 17:06 EDMS 04/12 16:04 Order name: Liver (Hepatic) Function; Complete Time: 17:20 EDMS 04/12 16:04 Order name: Lipase; Complete Time: 17:20 EDMS 04/12 16:04 Order name: Procalcitonin; Complete Time: 17:20 EDMS 04/12 16:03 Order name: Labs collected and sent; Complete Time: 16:48 kb 04/12 16:03 Order name: O2 Per Protocol; Complete Time: 16:48 kb 04/12 16:03 Order name: O2 Sat Monitoring; Complete Time: 16:48 kb 04/12 17:59 Order name: Misc. Order: ambulate pt and recheck pulse ox; Complete Time: 18:54 kb EC:24 Rate is 73 beats/min. Rhythm is regular. QRS [place] is Normal. [place] interval is normal at kb 170 msec. QRS interval is normal at 78 msec. QT interval is normal at 376 msec. Administered Medications: 17:18 Drug: Decadron - Dexamethasone 10 mg Route: IVP; Site: right antecubital; jd3 Disposition: 04/13 06:43 Co-signature as Attending Physician, Antonio Davis MD I agree with the assessment and kdr plan of care. Disposition: 04/12/20 18:45 Discharged to Home. Impression: Coronavirus infection, unspecified, Viral pneumonia, unspecified. - Condition is Stable. - Discharge Instructions: Viral Respiratory Infection, [id number], COVID-19. - Prescriptions for Pulmicort Flexhaler 180 mcg/actuation Inhalation aerosol powdr breath activated - inhale 2 puff by INHALATION route 2 times per day; 1 Inhaler. - Medication Reconciliation Form, Thank You Letter, Antibiotic Education, Prescription Opioid Use form. - Follow up: Private Physician; When: 2 - 3 days; Reason: Recheck today's complaints, Continuance of care, Re-evaluation by your physician. Follow up: Emergency Department; When: As needed; Reason: Worsening of condition. Signatures: Dispatcher [employer] [facility] Shaina Navarro, DEEPAK-C ACID ETCH OPERATOR-Nicci Barnett RN RN sv Rittger, Kevin, MD MD kdr Calderon, Audri, RN RN Maulik Prado RN RN jd3 Corrections: (The following items were deleted from the chart) 04/12 19:07 18:45 04/12/2020 18:45 Discharged to Home. Impression: Coronavirus infection, aa5 unspecified; Viral pneumonia, unspecified. Condition is Stable. Forms are Medication Reconciliation Form, Thank You Letter, Antibiotic Education, Prescription Opioid Use. Follow up: Private Physician; When: 2 - 3 days; Reason: Recheck today's complaints, Continuance of care, Re-evaluation by your physician. Follow up: Emergency Department; When: As needed; Reason: Worsening of condition. kb
--- NOTE | 2020-04-12 18:46 | ER ---
[facility] Name: Donald Dixon Age: 70 yrs Sex: Male : 1950 Arrival Date: 04/12/2020 Time: 15:09 Bed 6 Private MD: Diagnosis: Coronavirus infection, unspecified;Viral pneumonia, unspecified Presentation: 04/12 15:27 Chief complaint: Patient states: COVID + Friday, and breathing has worsened. sv Coronavirus screen: Client denies travel out of the [place] in the last 14 days. Client reports previous positive COVID test result. Ebola Screen: No symptoms or risks identified at this time. Risk Assessment: Do you want to hurt yourself or someone else? Patient reports no desire to harm self or others. Onset of symptoms was April 12, 2020. 15:27 Method Of Arrival: Ambulatory sv 15:27 Acuity: SHEYLA 3 sv 15:28 Initial Sepsis Screen: Does the patient meet any 2 criteria? RR > 20 per min. No. sv Patient's initial sepsis screen is negative. Does the patient have a suspected source of infection? Yes: Other: COVID. Historical: - Allergies: 15:28 No Known Allergies; sv - PMHx: 15:28 GERD; Hypertension; sv - PSHx: 15:28 Appendectomy; Knee surgery; Tonsillectomy; sv Screenin:30 Abuse screen: Denies threats or abuse. Nutritional screening: No deficits noted. aa5 Tuberculosis screening: No symptoms or risk factors identified. Fall Risk None identified. Assessment: 16:20 General: Appears uncomfortable, Behavior is calm, cooperative. Pain: Denies pain. aa5 Neuro: Level of Consciousness is awake, alert, obeys commands, Oriented to person, place, time, situation. Cardiovascular: Heart tones S1 S2 present Rhythm is regular. Respiratory: Reports shortness of breath at rest on exertion cough that is non-productive, labored breathing Airway is patent Respiratory effort is even, Respiratory pattern is regular, symmetrical, tachypnea Breath sounds are diminished in left posterior lower lobe, right posterior middle lobe and right posterior lower lobe. GI: Abdomen is round non-distended, Bowel sounds present X 4 quads. Abd is soft and non tender X 4 quads. : No signs and/or symptoms were reported regarding the genitourinary system. EENT: Reports loss of taste and smell . Derm: Skin is pink, warm \T\ dry. Musculoskeletal: Range of motion: intact in all extremities. 17:20 Reassessment: Patient is alert, oriented x 3, equal unlabored respirations, skin aa5 warm/dry/pink. Patient states feeling better. Patient states symptoms have improved. 18:30 Reassessment: Pt's O2 sat decreased to 92% RA, RR increased to 35, and pt c/o increased aa5 SOB upon ambulation, OFFICE SUPPORT ASSOCIATE was notified of findings. . 19:00 Reassessment: Patient is alert, oriented x 3, equal unlabored respirations, skin aa5 warm/dry/pink. Vital Signs: 15:28 BP 128 / 84; Pulse 89; Resp 30; Temp 98.8(TE); Pulse Ox 98% on R/A; Weight 108.86 kg; sv Height 5 ft. 10 in. (177.80 cm); Pain 0/10; 17:26 BP 108 / 68; Pulse 65; Resp 20 S; Pulse Ox 95% on R/A; jd3 18:30 BP 110 / 70; Pulse 68; Resp 22 S; Pulse Ox 96% on R/A; aa5 15:28 Body Mass Index 34.44 (108.86 kg, 177.80 cm) sv ED Course: 15:09 Patient arrived in ED. ag5 15:27 Arm band placed on. sv 15:28 Triage completed. sv 16:02 Nadiya Gonzalez RN is Primary Nurse. aa5 16:02 Shaina Navarro FNP-C [facility]. kb 16:02 Antonio Davis MD is Attending Physician. kb 16:20 Patient has correct armband on for positive identification. Bed in low position. Call aa5 light in reach. Side rails up X 1. vehicle monitor technician on. Pulse ox on. NIBP on. 16:32 CXR XRAY In Process Unspecified. EDMS 16:35 Initial lab(s) drawn, by me, sent to lab. First set of blood cultures drawn by me. aa5 Inserted saline lock: 20 gauge in right antecubital area, using aseptic technique. Blood collected. 16:48 Second set of blood cultures drawn by me. Inserted saline lock: 22 gauge in right aa5 wrist, using aseptic technique. 19:00 No provider procedures requiring assistance completed. IV discontinued, intact, aa5 bleeding controlled, No redness/swelling at site. Pressure dressing applied. Administered Medications: 17:18 Drug: Decadron - Dexamethasone 10 mg Route: IVP; Site: right antecubital; jd3 Outcome: 18:45 Discharge ordered by . gwendolyn 19:05 Discharged to home ambulatory. aa5 19:05 Condition: stable 19:05 Discharge instructions given to patient, Instructed on discharge instructions, follow up and referral plans. medication usage, Demonstrated understanding of instructions, follow-up care, medications, Prescriptions given X 1. 19:07 Patient left the ED. aa5 Signatures: Dispatcher [employer] EDMS Shaina Navarro, TRAVIS SOTELO-Nicci Barnett RN RN Nadiya Schrader RN RN Maulik Prado RN RN jAmbrocio Dias ag5 Corrections: (The following items were deleted from the chart) 15:31 15:28 Pulse 89bpm; Resp 30bpm; Pulse Ox 98% RA; Temp 98.8F Temporal; 108.86 kg; Height sv 5 ft. 10 in.; BMI: 34.4; Pain 0/10; sv
[2020-04-12 19:17] VITALS: TEMP 98.8
[2020-04-12 19:18] VITALS: BP 108/68; O2SAT 95
== END 2020-04-12 19:07 | disposition home or self-care (01) ==
LOC: ER 15:07
DX: U07.1 COVID-19 (principal); J12.82 Pneumonia due to coronavirus disease 2019; K21.9 Gastro-esophageal reflux disease without esophagitis; I10 Essential (primary) hypertension
CPT/HCPCS: 93005; 87040 ×2; 85025; 80048; 36415; 85610; 85379; 80076; 83605; 85730; 84484; 82728; 83690; 84145; 86140; 71045; 96374; 99284; J1100